=== PATIENT | female | born 1990 | race African-American/Black ===

== ENCOUNTER 2018-05-01 16:42 | Emergency (ER) | payer OTHER, SELFPAY ==
[2018-05-01 17:33] LABS: Bilirubin Negative (Negative); Blood, Urine Negative (Negative); Clarity TURBID (Clear); Glucose, Urine (Dipstick) Negative (Negative); Leukocyte Trace (Negative); Nitrite Negative (Negative); Protein, Urine (Dipstick) 30 mg/dL (Neg-Trace); Specific Gravity, Urine 1.017 (1.002-1.036); pH, Urine 8.5 (5.0-9.0)
[2018-05-01 17:35] LABS: Bacteria/HPF Rare-Few HPF (None Seen); Hyaline Casts/LPF 4-6 HYALINE CAST LPF (0-3 Hyaline); Pathc Cast-AUWi Flag 1.01 (0-2.49); Pregnancy Test - Urine (BHCG) Negative (Negative); Pregu Control Background? CLEAR/WHITE (CLR/WHITE); Pregu Control Bar Appear? YES (CONTROL BAR); RBC/HPF 0-3 HPF (0-3); Specific Gravity 1.017 (1.002-1.036); WBC/HPF 0-3 HPF (0-3)
[2018-05-01] MEDS ORDERED: Ketorolac Tromethamine 30 MG/ML VIAL ONE (17:54)
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
== END 2018-05-01 18:50 | disposition home or self-care (01) ==
LOC: ERS 16:42
DX: M54.2 Cervicalgia (principal); R51 Headache; G43.909 Migraine, unspecified, not intractable, without status migrainosus; Z79.899 Other long term (current) drug therapy; V43.52XA Car driver injured in collision with other type car in traffic accident, initial encounter
CPT/HCPCS: 72040; 81003; 81015; 81025; 96372; J1885

== ENCOUNTER 2018-05-07 19:50 | Emergency (ER) | payer OTHER, SELFPAY ==
[2018-05-07] MEDS ORDERED: Water For Inject, Bacteriostat 30 ML ONE (20:58)
[2018-05-07] MEDS ORDERED: Metoclopramide HCl 10 MG/2 ML VIAL ONE (20:58)
[2018-05-07] MEDS ORDERED: methylPREDNISolone Sod Succ/PF 125 MG/2 ML VIAL ONE (20:58)
[2018-05-07] MEDS ORDERED: diphenhydrAMINE 50 MG/ML VIAL ONE (20:58)
[2018-05-07 21:11] LABS: Anion Gap 12 mmol/L (10-20); BUN (Urea Nitrogen) 12 mg/dL (7.0-18.7); Calc. Creatinine Clearance 0 mL/min (70-130); Calcium 10.1 mg/dL (7.8-10.44); Carbon Dioxide 25 mmol/L (22-29); Chloride 106 mmol/L (98-107); Estimated GFR-MDRD 76; Glucose 81 mg/dL (70-105); Hemoglobin 11.3 g/dL (12.0-16.0); Mean Corpuscular HGB CONC 32.5 g/dL (32.0-36.0); Mean Corpuscular Hemoglobin 27.3 pg (27.0-31.0); Mean Platelet Volume 7.4 fL (7.4-10.4); Platelet Count 263 thou/uL (130-400); Potassium 3.5 mmol/L (3.5-5.1); RBC Distribution Width 11.9 % (11.5-14.5); Red Blood Cell (RBC) Count 4.14 mill/uL (4.20-5.40); Sodium 139 mmol/L (136-145)
[2018-05-07 21:20] LABS: Eosinophils 5 % (0-10); Lymphocytes 60 % (21-51); MDiff Complete? YES; Monocytes 9 % (0-10); Neutrophil 26 % (42-75)
== END 2018-05-07 23:27 | disposition home or self-care (01) ==
LOC: ERS 19:50
DX: G43.909 Migraine, unspecified, not intractable, without status migrainosus (principal); Z79.899 Other long term (current) drug therapy
CPT/HCPCS: 80048; 85025; 85652; 86140; 96365; 96375; J1200; J2765; J2930

== ENCOUNTER 2018-07-16 08:01 | Outpatient (CLI) | payer OTHER ==
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
== END 2018-07-16 08:02 | disposition home or self-care (01) ==
LOC: TBSIIMAG 08:01
PROVIDERS: ATTEND Psychiatry & Neurology Neurology
DX: G43.019 Migraine without aura, intractable, without status migrainosus (principal)
CPT/HCPCS: 72141

== ENCOUNTER 2020-11-26 08:42 | Outpatient (CLI) | payer OTHER ==
--- NOTE | 2020-11-26 09:47 | MMO ---
Bilateral MAMMO Bilat Diag [facility]DI+NELL. CLINICAL HISTORY: Patient is 29 years old and is seen for diagnostic exam and palpable abnormality in the sub-areolar region of the right breast. The patient has the following family history of breast cancer: paternal aunt and 1st cousin once removed. The patient has a history of right Excisional Biopsy at age 15 - benign. VIEWS: The views performed were: bilateral craniocaudal with tomosynthesis; bilateral mediolateral oblique with tomosynthesis; and bilateral mediolateral with tomosynthesis. FILMS COMPARED: The present examination has been compared to a prior imaging study performed at [facility] on 11/26/2020. This study has been interpreted with the assistance of computer-aided detection. MAMMOGRAM FINDINGS: The breasts are heterogeneously dense, which could obscure a lesion on mammography. There are solid nodules at site of palpable abnormality in the right retroaerolar breast on US. A solid nodule by US is also seen at 5:00 left breast correesponding to the mammographic finding. There are no suspicious masses, suspicious calcifications, or new areas of architectural distortion. IMPRESSION: THERE IS NO MAMMOGRAPHIC EVIDENCE OF MALIGNANCY. AGE APPROPRIATE SCREENING BASED ON RISK FACTORS IS RECOMMENDED. THE RESULTS OF THIS EXAM WERE SENT TO THE PATIENT. ACR BI-RADS Category 2 - Benign finding MAMMOGRAPHY NOTE: 1. A negative mammogram report should not delay a biopsy if a dominant of clinically suspicious mass is present. 2. Approximately 10% to 15% of breast cancers are not detected by mammography. 3. Adenosis and dense breasts may obscure an underlying neoplasm. Reported by: MANUEL BURROUGHS MD Electonically Signed: [id number]
--- NOTE | 2020-11-26 09:56 | ULT ---
LIMITED RIGHT BREAST ULTRASOUND LIMITED LEFT BREAST ULTRASOUND: Date: 11/26/2020 HISTORY: Palpable abnormality in the right retroareolar breast. FINDINGS: Correlation made with mammograms from same date. Sonographic evaluation at the region of palpable concern at the 7 o'clock position of the retroareola r right breast demonstrates a conglomerate of three well-circumscribed, solid, nonshadowing nodules, the largest measuring up to 1.0 cm. Sonographic evaluation at the posterior aspect of the 5 o'clock position of the left breast, 6.0 cm f rom the nipple, demonstrates a well-circumscribed, nonshadowing 8.0 mm solid nodule. 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 IMPRESSION: BI-RADS Category 2 - Benign findings. Return to age-appropriate screening based on risk factors. POS: OFF
== END 2020-11-26 08:43 | disposition home or self-care (01) ==
LOC: BICMAMMO 08:42
PROVIDERS: ATTEND Family Medicine
DX: N63.41 Unspecified lump in right breast, subareolar (principal)
CPT/HCPCS: 77066; G0279